=== PATIENT | female | born 1960 | race Hispanic/Latino ===

== ENCOUNTER 2018-07-28 12:39 | Outpatient (CLI) | payer MEDICARE | END 2018-07-28 12:40 | disposition home or self-care (01) | LOC: RAD 12:39 ==

== ENCOUNTER 2018-08-07 13:36 | Emergency (ER) | payer MEDICARE, OTHER ==
[2018-08-07 13:41] VITALS: BMI 35.4
[2018-08-07 13:43] VITALS: BP 141/82; PULSE 66; RESP 18; TEMP 97.6; O2SAT 100
[2018-08-07] MEDS ORDERED: TDAP Vaccine 0.5 mL Syr IM ONE (14:08)
--- NOTE | 2018-08-07 14:18 | ED PDOC ---
Arrival/HPI <Rajwinder Agrawal - Last Filed: 08/07/18 17:03> - General Historian: Patient - History of Present Illness Narrative History of Present Illness (Text): 08/07/18 14:15 A 57 year old female presents to the emergency department with a complaint of a laceration to her right knee. Patient reports slipping as a result of snow and landing her right knee on the metal edge of her basement stairs. Patient sustained a laceration to the right knee. The patient reports that she is able to bear some weight on the right leg. She denies head trauma, LOC, any other injury, fevers, chills, headache, dizziness, chest pain, shortness of breath, dyspnea on exertion, cough, abdominal pain, nausea, vomiting, diarrhea, back pain, neck pain, urinary/bowel changes, or any other complaint. Time/Duration: Prior to Arrival Symptom Onset: Sudden Symptom Course: Unchanged Activities at Onset: Rest, Light Context: Home <Malick Galvez - Last Filed: 08/07/18 17:56> - General Chief Complaint: Lower Extremity Problem/Injury Time Seen by Provider: 08/07/18 13:58 Past Medical History - Provider Review Nursing Documentation Reviewed: Yes - Infectious Disease Hx of Infectious Diseases: None - Cardiac Hx Cardiac Disorders: Yes Hx Hypertension: Yes - Pulmonary Hx Respiratory Disorders: Yes Hx Chronic Obstructive Pulmonary Disease (COPD): Yes - Neurological Hx Neurological Disorder: Yes Other/Comment: Neuropathy - HEENT Hx HEENT Disorder: Yes (Wears Glasses) - Renal Hx Renal Disorder: No - Endocrine/Metabolic Hx Endocrine Disorders: Yes Hx Systemic Lupus Erythematosus: Yes - Hematological/Oncological Hx Blood Disorders: No - Integumentary Hx Dermatological Disorder: No - Musculoskeletal/Rheumatological Hx Musculoskeletal Disorders: Yes Hx Herniated Disk: Yes - Gastrointestinal Hx Gastrointestinal Disorders: Yes Hx Crohn's Disease: Yes - Genitourinary/Gynecological Hx Genitourinary Disorders: No - Psychiatric Hx Psychophysiologic Disorder: No Hx Substance Use: No - Surgical History Hx Section: Yes (x 2) Hx Hysterectomy: Yes - Anesthesia Hx Anesthesia Reactions: No Hx Malignant Hyperthermia: No - Suicidal Assessment Feels Threatened In Home Enviroment: No <Malick Galvez - Last Filed: 08/07/18 17:56> Family/Social History - Physician Review Nursing Documentation Reviewed: Yes Family/Social History: No Known Family HX Smoking Status: Never Smoked Hx Alcohol Use: No Hx Substance Use: No <Malick Galvez - Last Filed: 08/07/18 17:56> Allergies/Home Meds <Rajwinder Agrawal - Last Filed: 08/07/18 17:03> <Malick Galevz - Last Filed: 08/07/18 17:56> Allergies/Adverse Reactions: Allergies gluten Allergy (Verified 08/07/18 13:44) ANAPHYLAXIS latex Allergy (Verified 08/07/18 13:44) ANAPHYLAXIS penicillin G Allergy (Verified 08/07/18 13:44) ANAPHYLAXIS CT DYE/IODINE Allergy (Severe, Uncoded 09/22/14 14:36) ANAPHYLAXIS Home Medications: Home Meds Medication Instructions Recorded Confirmed Adalimumab [Humira] 40 mg SC Q15D 06/04/13 08/07/18 Celecoxib [Celebrex] 200 mg PO BID 06/04/13 08/07/18 Hydroxychloroquine Sulfate 200 mg PO BID 06/04/13 08/07/18 [Plaquenil] Mercaptopurine [6-Mp] 50 mg PO BID 06/04/13 08/07/18 Metoprolol Succinate XL [Toprol XL] 50 mg PO QPM 06/04/13 08/07/18 Dexlansoprazole [Dexilant] 60 mg PO BID 06/07/13 08/07/18 Rosuvastatin Calcium [Crestor] 10 mg PO HS 06/19/14 08/07/18 Hydrocodone/Acetaminophen [Vicodin 1 tab PO TID PRN 09/22/14 08/07/18 Hp 300 mg-10 mg] Fluticasone Furoate [Arnuity 1 tab PO DAILY 08/07/18 08/07/18 Ellipta] Losartan [Cozaar] 50 mg PO DAILY 08/07/18 08/07/18 Mesalamine ER Cap [Pentasa] 2,000 mg PO BID 08/07/18 08/07/18 Umeclidinium Brm/Vilanterol Tr 1 tab PO DAILY 08/07/18 08/07/18 [Anoro Ellipta 62.5-25 Mcg INH] Review of Systems - Physician Review All systems were reviewed & negative as marked: Yes - Review of Systems Constitutional: absent: Fevers Respiratory: absent: SOB <Imm,Malick T - Last Filed: 08/07/18 17:56> Physical Exam Vital Signs Temp Pulse Resp BP Pulse Ox 08/07/18 13:42 97.6 F 66 18 141/82 100 <Rajwinder Agrawal - Last Filed: 08/07/18 17:03> - Physical Exam Narrative Physical Exam (Text): 08/07/18 14:17 Constitutional: No acute distress. Head: Normocephalic. Atraumatic. ENT: Moist mucous membranes. Cardiovascular: Regular rate. Respiratory: No respiratory distress. Musculoskeletal: FROM of R knee. Skin: Laceration inferior to knee, at proximal anterior lower leg. Neurologic: Alert, no focal deficit. Sensation to light touch intact. Vital Signs Reviewed: Yes Vital Signs Temp Pulse Resp BP Pulse Ox 08/07/18 13:42 97.6 F 66 18 141/82 100 Temperature: Afebrile Blood Pressure: Normal Pulse: Regular Respiratory Rate: Normal Appearance: Positive for: Well-Appearing, Non-Toxic, Comfortable Pain Distress: None Mental Status: Positive for: Alert and Oriented X 3 <Malick Galvez T - Last Filed: 08/07/18 17:56> Medical Decision Making - RAD Interpretation Radiology Orders: 08/07/18 14:08 KNEE W PATELLA RIGHT 3 VIEW [RAD] Stat - Medication Orders Current Medication Orders: Discontinued Medications Clindamycin HCl (Cleocin) 300 mg PO STAT STA; Protocol Stop: 08/07/18 16:34 Last Admin: 08/07/18 16:39 Dose: 300 mg Lidocaine HCl (Lidocaine 2% 20ml Vial) 2 ml IJ STAT STA Stop: 08/07/18 15:18 Tetanus/Reduced Diphtheria/Acell Pertussis (Boostrix Vaccine Inj) 0.5 ml IM .ONCE ONE Stop: 08/07/18 14:09 Last Admin: 08/07/18 14:19 Dose: 0.5 ml Immunization Registry Document 08/07/18 14:19 EB (Rec: 08/07/18 14:19 EB [id number]) [facility]-Date provided 07/17/18 <Rajwinder Agrawal - Last Filed: 08/07/18 17:03> ED Course and Treatment: 08/07/18 14:18 Impression: A 57 year old female presents to the emergency department s/p slip and fall and sustaining a laceration to her right knee. Plan: -- Right Knee w/ Patella -- Boostrix Vaccine -- Reassess and disposition Prior Visits: Notes and results from previous visits were reviewed. 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 Agrees with Clindamycin antibiotic coverage. States will see patient in his office on Friday. Instructed to return to ED for erythema, worsening pain, fever, discharge of pus, bleeding, inability to range. - RAD Interpretation Radiology Orders: 08/07/18 14:08 KNEE W PATELLA RIGHT 3 VIEW [RAD] Stat - Medication Orders Current Medication Orders: Discontinued Medications Tetanus/Reduced Diphtheria/Acell Pertussis (Boostrix Vaccine Inj) 0.5 ml IM .ONCE ONE Stop: 08/07/18 14:09 <Malick Galvez - Last Filed: 08/07/18 17:56> Procedure: Wound Repair - Time Performed Time Performed: 15:40 - Time Out Time Out: Side verified, Site verified, Patient ID confirmed, Sterile procedures obs. - Procedure Procedure: Wound Repair: Laceration repair - Performed by Performed by: Mid-level Provider (resident) - Indications Indication(s):: Laceration, Avulsion - Location Location:: Right, Knee Shape:: Linear, Other (irregular superior edge, skin revised for cosmetic closure) Dimensions Length cm: 5 Dimensions width cm: 0.5 Depth:: Bone - Anesthetic Technique Anesthetic Technique: Local Local/Regional Anesthetic:: Lidocaine 2% - Wound Examination Wound Examination:: Other (skin edges revised) - Debris Debris:: None - Irrigated Irrigated with ml of normal saline: 50 - Complexity Complexity:: Intermediate (2 layer) - Wound repair method Sutures:: # (8), Size (2,0), Type (prolene), Technique (simple interrupted) Dov:: Steri-strips - Muscle repiar layer closed with Muscle repair layer closed with:: # (1), Size (2.0), Type (monocryl), Technique (simple interrupted), Wound well approximated, Dressing applied, Tetanus ordered - Complications Complications: none - Patient tolerated procedure Patient Tolerated Procedure:: Well <Rajwinder Agrawal - Last Filed: 08/07/18 17:03> - Scribe Statement The provider has reviewed the documentation as recorded by the Scribe Radha Scott Provider Scribe Attestation: All medical record entries made by the Scribe were at my direction and perso jessi dictated by me. I have reviewed the chart and agree that the record accurately reflects my personal performance of the history, physical exam, medical decision making, and the department course for this patient. I have also personally directed, reviewed, and agree with the discharge instructions and disposition. <LeonorMalick - Last Filed: 08/07/18 17:56> Disposition/Present on Arrival <Rajwinder Agrawal - Last Filed: 08/07/18 17:03> - Present on Arrival Any Indicators Present on Arrival: No History of DVT/PE: No History of Uncontrolled Diabetes: No Urinary Catheter: No History of Decub. Ulcer: No History Surgical Site Infection Following: None - Disposition Have Diagnosis and Disposition been Completed?: Yes Disposition Time: 16:34 Patient Plan: Discharge <LeonorMalick - Last Filed: 08/07/18 17:56> - Disposition Diagnosis: Laceration Disposition: HOME/ ROUTINE Patient Problems: Current Active Problems Problem Status Onset Laceration Acute Condition: STABLE Discharge Instructions (ExitCare): Laceration Repair With Stitches (DC) Additional Instructions: Dr. Zheng will see you in his office on Friday. Prescriptions: Clindamycin [Cleocin] 300 mg PO QID #28 cap Referrals: Yomi Forbes MD [Primary Care Provider] - Follow up with primary Storm Zheng III, MD [Medical Doctor] - Follow up with primary Forms: [employer] ([place]ese)
[2018-08-07] MEDS ORDERED: Lidocaine 2% Inj (20ml) IJ STA (15:17)
--- NOTE | 2018-08-07 15:21 | RAD ---
Date of service: 08/07/2018 PROCEDURE: Right Knee and patella radiographs. HISTORY: knee strike, fall COMPARISON: None. FINDINGS: BONES: Normal. No fracture. JOINTS: Mild joint space narrowing medial facet of the patella JOINT EFFUSION: None. OTHER FINDINGS: None. IMPRESSION: No acute findings
== END 2018-08-07 17:40 | disposition home or self-care (01) ==
LOC: ED 13:36
DX: S81.011A Laceration without foreign body, right knee, initial encounter (principal); W00.0XXA Fall on same level due to ice and snow, initial encounter; Z23 Encounter for immunization